=== PATIENT | female | born 1960 | race African-American/Black ===

== ENCOUNTER 2018-06-07 05:23 | Day surgery (SDC) | payer MEDICAID ==
[~2018-06-07] VITALS: Ht 170.2 cm; Wt 110.7 kg
[~2018-06-07 05:23] MED LIST: LISI-186 PO
[2018-06-07] MEDS ORDERED: LACTATED RINGERS 1,000 ML IV SCH (06:30)
[2018-06-07] MEDS ORDERED: LIDOCAINE HCL 1% 20ML VIAL (Pyxis) INJ ONE (07:04)
[2018-06-07] MEDS ORDERED: BUPIVACAINE HCL/PF 0.5% (5MG/ML) 10ML ONE (07:05)
[2018-06-07] MEDS ORDERED: PROPOFOL 200MG/20ML VIAL IV ONE (07:18)
[2018-06-07] MEDS ORDERED: ROCURONIUM BROMIDE 10MG/ML VIAL 5ML IV ONE ×2 (07:19→08:28)
[2018-06-07] MEDS ORDERED: SUCCINYLCHOLINE CHLORIDE 200MG/10ML IV ONE (07:19)
[2018-06-07] MEDS ORDERED: METOCLOPRAMIDE HCL 10MG/2ML VIAL ONE (07:20)
[2018-06-07] MEDS ORDERED: MIDAZOLAM HCL 2 MG/2 ML VIAL ONE (07:20)
[2018-06-07] MEDS ORDERED: GLYCOPYRROLATE 0.2 MG/ML 2ML VIAL ONE ×2 (07:20→09:32)
[2018-06-07] MEDS ORDERED: DIPHENHYDRAMINE 50MG/ML VIAL ONE (07:21)
[2018-06-07] MEDS ORDERED: ONDANSETRON HCL 4MG/2ML INJ ONE (07:21)
[2018-06-07] MEDS ORDERED: VERAPAMIL HCL 2.5 MG/1 ML 2ML VIAL IV ONE ×4 (07:22→08:58)
[2018-06-07] MEDS ORDERED: ALBUTEROL 90MCG/PUFF 17GM INHALER INH ONE (07:26)
[2018-06-07] MEDS ORDERED: LIDOCAINE HCL/PF 1% 10 MG/ML 5ML VIAL ONE (07:29)
[2018-06-07] MEDS ORDERED: BACITRACIN 50,000 UNITS/VIAL ONE (07:31)
[2018-06-07] MEDS ORDERED: CEFOXITIN SODIUM 2 G in DEXT 5% WATER 100 ML IV SCH (09:00)
[2018-06-07] MEDS ORDERED: DEXAMETHASONE 4MG/ML 1ML VIAL ONE (09:09)
[2018-06-07] MEDS ORDERED: NEOSTIGMINE METHYLSULFATE 1MG/ML 10 ML VIAL ONE (09:31)
[2018-06-07] MEDS ORDERED: KETOROLAC 30MG/ML VIAL IV PRN (09:45)
[2018-06-07] MEDS ORDERED: VERAPAMIL HCL 2.5 MG/1 ML 2ML VIAL IV PRN (09:45)
[2018-06-07 10:27] VITALS: BP 167/99
== END 2018-06-07 12:30 | disposition home or self-care (01) ==
LOC: OR 05:23
PROVIDERS: ATTEND Specialist
DX: K64.2 Third degree hemorrhoids (principal); I10 Essential (primary) hypertension; E66.9 Obesity, unspecified; Z87.891 Personal history of nicotine dependence
CPT/HCPCS: 46947; 88304; J0330; J0694; J1100; J1200; J1885; J2250; J2405; J2704; J2710; J2765; J3490; J7060